=== PATIENT | male | born 1980 ===

== ENCOUNTER 2021-04-24 18:30 | Emergency (ER) | payer BC ==
[2021-04-24] MEDS ORDERED: Sodium Chloride 0.9% 2.5 ML Syringe FLUSH PRN (19:01)
[2021-04-24] MEDS ORDERED: Sodium Chloride 0.9% 10 ML Syringe FLUSH PRN (19:01)
[2021-04-24] MEDS ORDERED: Ketorolac 30 MG/ML SDV IVPUSH ONE (19:01)
--- NOTE | 2021-04-24 19:09 | EDM.PDOC ---
ED HPI GENERAL MEDICAL PROBLEM - General Chief Complaint: General Stated Complaint: TROUBLE BREATHING, PAIN IN CHEST Time Seen by Provider: 04/24/21 18:46 Source of Information: Reports: Patient History Limitations: Reports: No Limitations - History of Present Illness INITIAL COMMENTS - FREE TEXT/NARRATIVE: HISTORY AND PHYSICAL: History of present illness: The patient is a 41-year-old male who presents to emergency department with plaints of left collarbone pain, left rib pain that started yesterday as he was driving back from work. He states that it hurts to take a deep breath or cough. The patient denies any injury. He is not a smoker. He denies any diaphoresis or shortness of breath. Patient denies any fever, chills, headache, change in vision, syncope or near syncope. Denies any chest pain, back pain, shortness of breath or cough. Denies any abdominal pain, nausea, vomiting, diarrhea, constipation or dysuria. Has not noted any blood in urine or stool. Patient has been eating and drinking appropriately. Review of systems: As per history of present illness and below otherwise all systems reviewed and negative. Past medical history: As per history of present illness and as reviewed below otherwise noncontributory. Surgical history: As per history of present illness and as reviewed below otherwise noncontributory. Social history: See social history for further information Family history: As per history of present illness and as reviewed below otherwise noncontributory. Physical exam: General: Well developed and well nourished. Alert and orientated x 3. Nontoxic in appearance and in no acute distress. Vital signs are stable and have been reviewed by me. Nursing notes were reviewed. HEENT: Atraumatic, normocephalic, pupils equal and reactive bilaterally, negative for conjunctival pallor or scleral icterus, mucous membranes moist, throat clear, neck supple, nontender, trachea midline. No drooling or trismus noted. No meningeal signs. No hot potato voice noted. Lungs: Clear to auscultation bilaterally. No wheezes, rales, or rhonchi. Chest nontender. Normal work of breathing, no accessory muscles used. Heart: S1S2, regular rate and rhythm without overt murmur, gallops, or rubs. No JVD. No peripheral edema Abdomen: Soft, nondistended, nontender. Normoactive bowel sounds. Negative for masses or costovertebral tenderness. Skin: Intact, warm, dry. No lesions or rashes noted. Hematologic: No petechiae or purpra. Mucosa appropriate color and normal nail bed color and refill. Extremities: Atraumatic, left shoulder pain with front arm raise at 90 degrees. Moves all other extremities per self without difficulty or deficits, negative for cords or calf pain. Neurovascular unremarkable. Neuro: Awake, alert, oriented. Cranial nerves II through XII unremarkable. Cerebellum unremarkable. Motor and sensory unremarkable throughout. Exam nonfocal. Psychiatric: Mood and affect are appropriate. Normal thought process. Answering questions appropriately. Notes: *This patient was seen and evaluated during the 2019 SARS-CoV-2 novel coronavirus pandemic period. Community viral transmission is ongoing at time of this encounter and the emergency department is operating under pandemic response procedures. As stated above the patient presents to the emergency room with left collarbone bone and rib pain which started yesterday on a ride home. He does not know of any injury and has had no cough or cold to produce such pain. He denies any kind of cardiac symptoms and does have pain when he does a left arm raise. We will do a cardiac work-up and he did start on atorvastatin 72 hours ago so a CPK has been added. I will give the patient fluids & Toradol for pain control. The patient complaints of heartburn so I will give him a GI cocktail. 20:10 the patient's CBC is unremarkable, CMP unremarkable, troponin negative, CPK within normal limits, chest x-ray IMPRESSION: 1. Small lung volumes are present with minimal left basilar discoid atelectasis seen. The patient pain has resolved with the Toradol. And the patient's heartburn has resolved with a GI cocktail. After discussing treatment options the patient will be discharged with Norflex 100 mg p.o. twice daily for 10 days and either naproxen twice a day or Motrin 600 mg 3 times daily until the pain has resolved. The patient is agreeable with the discharge plan. I have talked with the patient about today's findings, in addition to providing specific details for plan of care. Reassessment at the time of disposition demonstrates that the patient is in no acute distress. The patient is stable for discharge, counseling was provided and we discussed in great detail signs and symptoms that would prompt them to return to the Emergency Department. Medication, follow up and supportive care measures were reviewed and discussed. Voices understanding and is agreeable to plan of care. Denies any further questions or concerns at this time. Diagnostics: CBC, CMP, troponin, EKG, CPK, CXR Therapeutics: IV fluids, Toradol, GI cocktail Prescription: Norflex 100 mg p.o. twice daily for 10 days Impression: Costochondritis Plan: 1. You were evaluated today on an emergent basis. Your complaints of left collarbone and rib pain or cough was evaluated by labs which checked for any heart condition which was negative, and any kind of muscle inflammation due to the atorvastatin which was negative. Most likely have a costochondritis which is the inflammation of the muscles around the ribs. You can take either naproxen twice a day or Motrin 600 mg 3 times a day and I have prescribed you Norflex 100 mg, which is a muscle relaxer, to take twice a day. I would advise you to take your atorvastatin either every other day or every third day until you follow-up with your primary care provider. 2. You can alternate Tylenol and ibuprofen as needed for pain and fever management. 3. We encourage you to follow up with your primary care provider and/or rec ommended specialist in the next few days for re-evaluation and further care/management. 4. If your symptoms should worsen, new symptoms develop or any of the signs and symptoms we discussed should arise please return to the emergency room or call 911 (if needed). Definitive disposition and diagnosis as appropriate pending reevaluation and review of above. Left Chest Pain Score (Numeric/FACES): 6 - Related Data Allergies Allergy/AdvReac Type Severity Reaction Status Date / Time No Known Allergies Allergy Verified 04/24/21 18:44 Home Meds: Home Meds Allopurinol [Zyloprim] 300 mg PO DAILY 04/24/21 [History] Omeprazole 20 mg PO DAILY 04/24/21 [History] Orphenadrine [Norflex] 100 mg PO BID PRN 10 Days #20 tab 04/24/21 [Rx] atorvaSTATin [Lipitor] 20 mg PO DAILY 04/24/21 [History] Past Medical History Cardiovascular History: Reports: High Cholesterol Gastrointestinal History: Reports: GERD Musculoskeletal History: Reports: Gout - Infectious Disease History Infectious Disease History: Reports: None Social & Family History - Tobacco Use Tobacco Use Status *Q: Never Tobacco User - Caffeine Use Caffeine Use: Reports: None - Recreational Drug Use Recreational Drug Use: No ED ROS GENERAL - Review of Systems Review Of Systems: Comprehensive ROS is negative, except as noted in HPI. ED EXAM, GENERAL - Physical Exam Exam: See Below (See dictation) Course - Vital Signs Last Recorded V/S: Last Vital Signs Temp 97 F 04/24/21 18:46 Pulse 70 04/24/21 20:30 Resp 16 04/24/21 20:30 BP 117/60 04/24/21 20:30 Pulse Ox 98 04/24/21 20:30 - Orders/Labs/Meds Orders: Active Orders 24 hr Category Date Time Status Saline Lock Insert [OM.PC] Stat Oth 04/24/21 19:01 Ordered Labs: Laboratory Tests 04/24/21 04/24/21 Range/Units 19:10 19:10 WBC 11.49 H (4.0-11.0) K/uL RBC 5.00 (4.50-5.90) M/uL Hgb 16.4 (13.0-17.0) g/dL Hct 46.0 (38.0-50.0) % MCV 92.0 (80.0-98.0) fL MCH 32.8 H (27.0-32.0) pg MCHC 35.7 (31.0-37.0) g/dL RDW Std Deviation 43.9 (28.0-62.0) fl RDW Coeff of Nathen 13 (11.0-15.0) % Plt Count 259 (150-400) K/uL MPV 9.20 (7.40-12.00) fL Neut % (Auto) 60.3 (48.0-80.0) % Lymph % (Auto) 25.2 (16.0-40.0) % Sandoval % (Auto) 12.9 (0.0-15.0) % Eos % (Auto) 1.4 (0.0-7.0) % Baso % (Auto) 0.2 (0.0-1.5) % Neut # (Auto) 6.9 H (1.4-5.7) K/uL Lymph # (Auto) 2.9 H (0.6-2.4) K/uL Sandoval # (Auto) 1.5 H (0.0-0.8) K/uL Eos # (Auto) 0.2 (0.0-0.7) K/uL Baso # (Auto) 0.0 (0.0-0.1) K/uL Nucleated RBC % 0.0 /100WBC Nucleated RBCs # 0 K/uL Sodium 141 (136-148) mmol/L Potassium 3.9 (3.5-5.1) mmol/L Chloride 103 (98-107) mmol/L Carbon Dioxide 26.7 (21.0-32.0) mmol/L BUN 13 (7.0-18.0) mg/dL Creatinine 0.9 (0.8-1.3) mg/dL Est Cr Clr Drug Dosing 112.72 mL/min Estimated GFR (MDRD) > 60.0 ml/min Glucose 91 (74-106) mg/dL Calcium 8.6 (8.5-10.1) mg/dL Total Bilirubin 0.6 (0.2-1.0) mg/dL AST 17 (15-37) IU/L ALT 49 (14-63) IU/L Alkaline Phosphatase 69 (46-116) U/L Creatine Kinase 87 (26-308) U/L Troponin I < 0.050 (0.000-0.056) ng/mL Total Protein 7.9 (6.4-8.2) g/dL Albumin 3.8 (3.4-5.0) g/dL Globulin 4.1 H (2.6-4.0) g/dL Albumin/Globulin Ratio 0.9 (0.9-1.6) Meds: Medications Discontinued Medications Generic Name Dose Route Start Last Admin Trade Name Freq PRN Reason Stop Dose Admin Al Hydroxide/Mg Hydroxide 15 0 ml 04/24/21 19:16 04/24/21 19:21 ml/ Lidocaine HCl 5 ml PO 04/24/21 19:17 1 each ONETIME ONE Administration Ketorolac Tromethamine 30 mg 04/24/21 19:01 04/24/21 19:12 Ketorolac 30 Mg/Ml Sdv IVPUSH 04/24/21 19:02 30 mg ONETIME ONE Administration Orphenadrine Citrate 60 mg 04/24/21 20:14 04/24/21 20:26 Orphenadrine 60 Mg/2 Ml Inj IM 04/24/21 20:15 60 mg ONETIME ONE Administration Sodium Chloride 10 ml 04/24/21 19:01 04/24/21 19:12 Sodium Chloride 0.9% 10 Ml Syringe FLUSH 10 ml ASDIRECTED PRN Administration Keep Vein Open Sodium Chloride 2.5 ml 04/24/21 19:01 04/24/21 19:12 Sodium Chloride 0.9% 2.5 Ml Syringe FLUSH 2.5 ml ASDIRECTED PRN Administration Keep Vein Open Departure - Departure Time of Disposition: 20:20 Disposition: Home, Self-Care 01 Condition: Good Clinical Impression: Costochondritis - Discharge Information *PRESCRIPTION DRUG MONITORING PROGRAM REVIEWED*: Not Applicable *COPY OF PRESCRIPTION DRUG MONITORING REPORT IN PATIENT MELINDA: Not Applicable Prescriptions: Orphenadrine [Norflex] 100 mg PO BID PRN 10 Days #20 tab PRN Reason: Pain Instructions: Costochondritis, [id number] Referrals: PCP,None [Primary Care Provider] - Forms: ED Department Discharge Additional Instructions: The following information is given to patients seen in the emergency department who are being discharged to home. This information is to outline your options for follow-up care. We provide all patients seen in our emergency department with a follow-up referral. The need for follow-up, as well as the timing and circumstances, are variable depending upon the specifics of your emergency department visit. If you don't have a primary care physician on staff, we will provide you with a referral. We always advise you to contact your personal physician following an emergency department visit to inform them of the circumstance of the visit and for follow-up with them and/or the need for any referrals to a consulting specialist. The emergency department will also refer you to a specialist when appropriate. This referral assures that you have the opportunity for follow-up care with a specialist. All of these measure are taken in an effort to provide you with o ptimal care, which includes your follow-up. Under all circumstances we always encourage you to contact your private physician who remains a resource for coordinating your care. When calling for follow-up care, please make the office aware that this follow-up is from your recent emergency room visit. If for any reason you are refused follow-up, please contact the [facility] Emergency Department at and asked to speak to the emergency department charge nurse. A[facility] Esteban - Primary Care [address] [place] [address] [facility] [address] [place] [id number] Plan: 1. You were evaluated today on an emergent basis. Your complaints of left collarbone and rib pain or cough was evaluated by labs which checked for any heart condition which was negative, and any kind of muscle inflammation due to the atorvastatin which was negative. Most likely have a costochondritis which is the inflammation of the muscles around the ribs. You can take either naproxen twice a day or Motrin 600 mg 3 times a day and I have prescribed you Norflex 100 mg, which is a muscle relaxer, to take twice a day. I would advise you to take your atorvastatin either every other day or every third day until you follow-up with your primary care provider. 2. You can alternate Tylenol and ibuprofen as needed for pain and fever management. 3. We encourage you to follow up with your primary care provider and/or recom mended specialist in the next few days for re-evaluation and further care/management. 4. If your symptoms should worsen, new symptoms develop or any of the signs and symptoms we discussed should arise please return to the emergency room or call 911 (if needed). Sepsis Event Note (ED) - Evaluation Sepsis Screening Result: No Definite Risk - Focused Exam Vital Signs: Vital Signs Temp Pulse Resp BP Pulse Ox 04/24/21 20:30 70 16 117/60 98 04/24/21 18:46 97 F 76 16 145/89 H 96 - My Orders Last 24 Hours: My Active Orders 04/24/21 19:01 Saline Lock Insert [OM.PC] Stat - Assessment/Plan Last 24 Hours: My Active Orders 04/24/21 19:01 Saline Lock Insert [OM.PC] Stat
[2021-04-24] MEDS ORDERED: Alum Hydrox/Mag Hydrox/Simeth 15 ML, Lidocaine 2% 5 ML PO ONE ×2 (19:16)
[2021-04-24 19:50] LABS: BLOOD UREA NITROGEN,BUN 13 mg/dL (7.0-18.0); CARBON DIOXIDE,CO2 26.7 mmol/L (21.0-32.0); CHLORIDE,CL 103 mmol/L (98-107); GLUCOSE RANDOM 91 mg/dL (74-106); POTASSIUM,K 3.9 mmol/L (3.5-5.1); SODIUM,NA 141 mmol/L (136-148)
--- NOTE | 2021-04-24 20:13 | CR ---
INDICATION: Chest pain TECHNIQUE: Chest radiograph 2 views COMPARISON: None FINDINGS: Severe degradation of image quality noted due to body habitus. Mediastinum: The mediastinum is normal in appearance. The heart silhouette is normal in size and morphology. Lung: Small lung volumes are present with minimal left basilar discoid atelectasis seen. No sign of pleural effusion seen. No pneumothorax is identified. Bone and Soft tissue: Remote, healed fracture deformity of the right clavicle is seen. IMPRESSION: 1. Small lung volumes are present with minimal left basilar discoid atelectasis seen. Dictated by Jose C Bansal MD @ 04/24/2021 8:11:21 PM Dictated by: Jose C Bansal MD @ 04/24/2021 20:11:25 (Electronically Signed)
[2021-04-24] MEDS ORDERED: Orphenadrine 60 MG/2 ML Inj IM ONE (20:14)
== END 2021-04-24 20:33 | disposition home or self-care (01) ==
LOC: MW.ED 18:30
DX: M94.0 Chondrocostal junction syndrome [Tietze] (principal); E78.00 Pure hypercholesterolemia, unspecified; K21.9 Gastro-esophageal reflux disease without esophagitis; M10.9 Gout, unspecified; Z79.899 Other long term (current) drug therapy
CPT/HCPCS: 36415; 71046; 80053; 82550; 84484; 85025; 93005; 96372; 96374; 99284; A9270; J1885; J2360; 99283